=== PATIENT | female | born 1955 | race Caucasian/White ===

== ENCOUNTER 2021-06-24 16:34 | Observation (INO) ==
[2021-06-24] MEDS ORDERED: methylPREDNISolone 125 MG/2 ML VIAL IVP ONE (17:00)
[2021-06-24] MEDS ORDERED: 0.9 % Sodium Chloride 1,000 ML IVC ONE (17:01)
[2021-06-24] MEDS ORDERED: levoFLOXacin 750 MG/150 ML 750 MG/150 ML BAG IVPB ONE (17:01)
[2021-06-24] MEDS: Ipratropium/Albuterol Neb 3 ML IH ONE ×2 (17:21→18:55)
[2021-06-24] MEDS ORDERED: Ipratropium/Albuterol Neb 3 ML ONE (17:30)
[2021-06-24 17:40] LABS: ABG Base Excess -4 mEq/L (-2 to 3); ABG HCO3 19 mEq/L (21-27); ABG Oxygen Saturation 95 % (95-98); ABG PCO2 27 mmHg (35-45); ABG PH 7.45 pH Units (7.32-7.45); ABG PO2 69 mmHg (85-104); ABG TCO2 20 mEq/L (20-26)
[2021-06-24 18:09] LABS: Basophils # 0.1 K/mcL (0.0-0.2); Eosinophils # 0.2 K/mcL (0.0-0.6); Eosinophils % 2.4 %; Hematocrit 36.1 % (35.3-44.9); Hemoglobin 11.8 g/dL (11.5-15.4); Immature Granulocytes % 0.5 % (0-4); Lymphocytes # 2.1 K/mcL (0.6-4.6); Lymphocytes % 21.8 %; Mean Corpuscular HGB Conc 32.7 g/dL (31.6-35.5); Mean Corpuscular Hemoglobin 28.9 pg (28.0-33.3); Mean Corpuscular Volume 88.5 fL (83.0-100.0); Monocytes % 10.5 %; Neutrophils # 6.3 K/mcL (1.6-8.9); Platelet Count 416 K/mcL (140-400); Red Blood Count 4.08 M/mcL (3.82-4.97); Red Cell Distribution Width 13.3 % (11.5-14.5); Segmented Neutrophils % 63.8 %; White Blood Count 9.8 K/mcL (4.3-11.1)
[2021-06-24 18:23] LABS: Alanine Aminotransferase 9 Units/L (7-52); Albumin 4.3 g/dL (3.5-5.7); Albumin/Globulin Ratio 1.3 (1.1-2.2); Alkaline Phosphatase 129 Units/L (34-104); Aspartate Amino Transferase 12 Units/L (13-39); BUN/Creatinine Ratio 20 (6-26); Bilirubin,Total 0.4 mg/dL (0.3-1.0); Blood Urea Nitrogen 23 mg/dL (8-23); Calcium 9.6 mg/dL (8.6-10.3); Carbon Dioxide 21 mEq/L (23-29); Chloride 106 mEq/L (98-107); Globulin 3.3 g/dL (2.4-3.5); Glucose 82 mg/dL (70-105); Osmolality,Calculated 287 (280-300); Potassium 4.1 mEq/L (3.5-5.1); Sodium 137 mEq/L (136-145); Total Protein 7.6 g/dL (6.4-8.9); eGFR For African Americans 59 (> 60); eGFR For Non-African Americans 48 (> 60)
[2021-06-24 18:28] LABS: Troponin I < 0.03 ng/mL (< 0.04)
[2021-06-24] MEDS ORDERED: Naloxone 0.4 MG/ML INJ IVP PRN ×2 (20:20)
[2021-06-24] MEDS ORDERED: Ondansetron ODT 4 MG TAB.RAPDIS SL PRN (20:20)
[2021-06-24] MEDS ORDERED: Ipratropium/Albuterol Neb 3 ML IH ONE (20:20)
[2021-06-24] MEDS: BuPROPion XL (24 HR) 150 MG TABLET PO SCH (21:22)
[2021-06-24] MEDS: Albuterol 2.5 MG/3 ML NEBULIZER IH PRN (23:52)
[2021-06-25 06:20] LABS: Basophils % 0.1 %; Hematocrit 33.1 % (35.3-44.9); Hemoglobin 10.6 g/dL (11.5-15.4); Immature Granulocytes % 0.7 % (0-4); Lymphocytes # 0.7 K/mcL (0.6-4.6); Lymphocytes % 8.6 %; Mean Corpuscular Hemoglobin 28.2 pg (28.0-33.3); Mean Platelet Volume 9.9 fL (9.4-12.4); Monocytes # 0.2 K/mcL (0.0-1.3); Monocytes % 2.2 %; Neutrophils # 7.4 K/mcL (1.6-8.9); Platelet Count 358 K/mcL (140-400); Red Blood Count 3.76 M/mcL (3.82-4.97); Red Cell Distribution Width 13.1 % (11.5-14.5); Segmented Neutrophils % 88.4 %; White Blood Count 8.3 K/mcL (4.3-11.1)
[2021-06-25] MEDS: MethylPREDNISolone 40 MG/ML VIAL IVP SCH ×2 (06:21→15:23)
[2021-06-25 06:40] LABS: BUN/Creatinine Ratio 20 (6-26); Blood Urea Nitrogen 20 mg/dL (8-23); Calcium 9.1 mg/dL (8.6-10.3); Carbon Dioxide 22 mEq/L (23-29); Chloride 108 mEq/L (98-107); Glucose 122 mg/dL (70-105); Osmolality,Calculated 288 (280-300); Potassium 4.4 mEq/L (3.5-5.1); Sodium 137 mEq/L (136-145); eGFR For African Americans > 60 (> 60); eGFR For Non-African Americans 54 (> 60)
[2021-06-25] MEDS: BuPROPion XL (24 HR) 150 MG TABLET PO SCH ×2 (08:17→22:32)
[2021-06-25] MEDS: polyethylene glycoL 3350 17 GM POWD.PACK PO PRN (08:19)
[2021-06-25] MEDS: Albuterol 2.5 MG/3 ML NEBULIZER IH PRN ×2 (08:33→23:05)
[2021-06-25] MEDS ORDERED: Benzonatate 100 MG CAPSULE PO PRN (11:00)
[2021-06-25] MEDS ORDERED: levoFLOXacin 500 MG/100 ML 500 MG/100 ML BAG IVPB SCH (18:00)
[2021-06-25] MEDS ORDERED: Zonisamide 100 MG CAPSULE PO SCH (18:00)
[2021-06-26 03:43] VITALS: RESP 16
[2021-06-26 05:56] LABS: Basophils % 0.1 %; Hematocrit 33.8 % (35.3-44.9); Hemoglobin 10.6 g/dL (11.5-15.4); Immature Granulocytes % 1.1 % (0-4); Lymphocytes # 1.8 K/mcL (0.6-4.6); Lymphocytes % 15.1 %; Mean Corpuscular HGB Conc 31.4 g/dL (31.6-35.5); Mean Corpuscular Hemoglobin 27.9 pg (28.0-33.3); Mean Corpuscular Volume 88.9 fL (83.0-100.0); Mean Platelet Volume 9.7 fL (9.4-12.4); Monocytes # 1.3 K/mcL (0.0-1.3); Monocytes % 10.8 %; Neutrophils # 8.8 K/mcL (1.6-8.9); Platelet Count 358 K/mcL (140-400); Red Cell Distribution Width 13.2 % (11.5-14.5); Segmented Neutrophils % 72.9 %; White Blood Count 12.1 K/mcL (4.3-11.1)
[2021-06-26 06:17] LABS: Calcium 9.1 mg/dL (8.6-10.3)
[2021-06-26] MEDS: MethylPREDNISolone 40 MG/ML VIAL IVP SCH (06:25)
[2021-06-26] MEDS: BuPROPion XL (24 HR) 150 MG TABLET PO SCH (10:06)
[2021-06-26] MEDS: polyethylene glycoL 3350 17 GM POWD.PACK PO PRN (10:33)
[2021-06-26 11:34] VITALS: BP 132/70; PULSE 89; TEMP 97.7
[2021-06-26 13:33] VITALS: O2SAT 96
== END 2021-06-26 14:09 | disposition home or self-care (01) ==
LOC: EMEROOGRE 16:34 → INPGRE 16:34
PROVIDERS: ADMIT Student in an Organized Health Care Education/Training Program; ATTEND Student in an Organized Health Care Education/Training Program